=== PATIENT | male | born 1960 | race African-American/Black ===

== ENCOUNTER 2024-11-22 13:23 | Emergency (ER) | payer MEDICARE, OTHER ==
[~2024-11-22] VITALS: Ht 177.8 cm; Wt 100.0 kg
[2024-11-22] MEDS: MORPHINE SULFATE 4 MG/ML INJ (FOR IV/IM USE) IV ONE (15:11)
[2024-11-22] MEDS: KETOROLAC 15MG/ML VIAL IV ONE (15:11)
[2024-11-22] MEDS: SODIUM CHLORIDE 0.9% 1,000 ML IV ONE (16:32)
[2024-11-22] MEDS: PROPOFOL 200MG/20ML VIAL IV ONE (16:32)
[2024-11-22 16:51] VITALS: O2SAT 100
[2024-11-22] MEDS ORDERED: IBUP-2029 MT (17:34)
[2024-11-22] MEDS ORDERED: HYDR-4001 MT (17:34)
[2024-11-22 17:52] VITALS: BP 138/67; PULSE 80; RESP 18; TEMP 36.9; O2SAT 100
== END 2024-11-22 17:53 | disposition home or self-care (01) ==
LOC: ER 13:33
DX: S82.832A Other fracture of upper and lower end of left fibula, initial encounter for closed fracture (principal); G47.30 Sleep apnea, unspecified; W22.8XXA Striking against or struck by other objects, initial encounter; Y93.89 Activity, other specified; Y92.89 Other specified places as the place of occurrence of the external cause; Y99.8 Other external cause status
CPT/HCPCS: 27825; 73610; 27788; 96374; 96375; 99285; J1885; J2704; J2270; J7030